=== PATIENT | male | born 1975 | race Hispanic/Latino ===

== ENCOUNTER 2020-01-19 12:31 | Observation (INO) | payer BC ==
[~2020-01-19] VITALS: Ht 182.9 cm; Wt 149.7 kg
[2020-01-19] MEDS ORDERED: LABETALOL HCL 5 MG/ML 20ML VIAL IV STA (12:58)
[2020-01-19] MEDS ORDERED: ASPIRIN 81 MG CHEW TAB PO ONE (13:00)
--- NOTE | 2020-01-19 13:25 | Diagnostic Imaging Report ---
X-ray chest frontal view History: Chest pain Comparison: None Findings: Lines and tubes: Not applicable Central airways: Unremarkable Cardiac silhouette: Unremarkable Mediastinal silhouettes: Unremarkable Pleura: No pleural effusion, pneumothorax or thickening Diaphragms: Unremarkable Lungs: No focal lung disease Skeletal structures: Unremarkable Extrathoracic soft tissues: Unremarkable Impression: No acute cardiopulmonary disease on this exam. Signed by: Eric Morrison MD on 01/19/2020 1:21 PM
[2020-01-19 13:30] LABS: BASOPHILS % 0.3 % (0.0-1.0); EOSINOPHILS # (AUTO) 0.2 (0.0-0.4); EOSINOPHILS % 2.1 % (0.0-6.0); HEMOGLOBIN 16.5 g/dL (14.0-18.0); LYMPHOCYTES # (AUTO) 1.7 (1.0-3.2); LYMPHOCYTES % 24.3 % (18.0-39.1); MEAN CORPUSCULAR VOLUME 90.9 fL (81-99); MONOCYTES # (AUTO) 0.8 (0.2-0.8); MONOCYTES % 10.5 % (4.4-11.3); NEUTROPHILS # (AUTO) 4.5 (2.1-6.9); NEUTROPHILS % 62.5 % (38.7-80.0); PLATELET COUNT 206 x10e3/uL (140-360); RED CELL DISTRIBUTION WIDTH 15.1 % (11.7-14.4)
[2020-01-19 13:35] LABS: INR 0.96; PROTHROMBIN TIME 13.3 seconds (11.9-14.5)
[2020-01-19 13:36] LABS: PARTIAL THROMBOPLASTIN TIME 32.6 seconds (23.8-35.5)
[2020-01-19 13:46] LABS: ALANINE AMINOTRANSFERASE 105 IU/L (0-55); ALBUMIN 4.1 g/dL (3.5-5.0); ALBUMIN/GLOBULIN RATIO 1.1 (0.8-2.0); ALKALINE PHOSPHATASE 100 IU/L (40-150); ANION GAP 12.8 mmol/L (8-16); BLOOD UREA NITROGEN 11 mg/dL (7-26); BUN/CREATININE RATIO 13 (6-25); CALCIUM 8.7 mg/dL (8.4-10.2); CARBON DIOXIDE 25 mmol/L (22-29); CHLORIDE 102 mmol/L (98-107); CREATINE KINASE 122 IU/L (30-200); CREATININE, SERUM 0.84 mg/dL (0.72-1.25); EST GLOMERULAR FILTRATION RATE > 60 ML/MIN (60-); GLUCOSE 99 mg/dL (74-118); LIPASE 23 U/L (8-78); MAGNESIUM 2.1 MG/DL (1.3-2.1); POTASSIUM 3.8 mmol/L (3.5-5.1); SODIUM 136 mmol/L (136-145)
--- NOTE | 2020-01-19 14:43 | Emergency Department Note ---
History of Present Illnes History of Present Illness Chief Complaint: Chest Pain History of Present Illness This is a 44 year old male Patient in from home with complaints of left upper chest pain that comes on after he eats which started about 1 week ago. Patient has a history of HTN and saw his doctor and had his blood pressure medication increased about a week ago. Patient went to see Dr. Shane again today because of the chest pain and his blood pressure was high so he was given 2 clonidine tablets in the office and sent here. Patient's blood pressure in triage is 193/123. Patient states the last time he had the pain was yesterday around 1400 when he last ate something. Denies pain now.. Historian: Patient Arrival Mode: Car Food Preservation Scientist Required: No Onset (how long ago): week(s) (1) Location: chest Quality: pressure Radiation: Reports non-radiation Severity: moderate Onset quality: gradual Timing of current episode: intermittent Progression: waxing and waning Chronicity: new Context: Denies recent illness Relieving factors: none Exacerbating factors: none Associated symptoms: Reports denies other symptoms Past Medical/Family History Physician Review I have reviewed the patient's past medical and family history. Any updates have been documented here. Past Medical History Recent Fever: No Clinical Suspicion of Infectio: No New/Unexplained Change in Ment: No Past Medical History: Hypertension Past Surgical History: None Social History Smoking Cessation: Never Smoker Counseling Performed: No Alcohol Use: Social Any Illegal Drug Use: No TB Exposure/Symptoms: No Physically hurt or threatened: No Family History Family history of heart diseas: No Other Any Pre-Existing Lines (PICC,: No Review of Systems Review of Systems Constitutional: Reports no symptoms EENTM: Reports no symptoms Cardiovascular: Reports as per HPI, Reports chest pain Respiratory: Reports dyspnea; Denies cough Gastrointestinal: Reports no symptoms Genitourinary: Reports no symptoms Musculoskeletal: Reports no symptoms Integumentary: Reports no symptoms Neurological: Reports no symptoms Psychological: Reports no symptoms Endocrine: Reports no symptoms Hematological/Lymphatic: Reports no symptoms Physical Exam Related Data Allergies: Coded Allergies: No Known Allergies (Unverified , 01/19/20) Triage Vital Signs Vital Signs Date Time Temp Pulse Resp B/P (MAP) Pulse Ox O2 Delivery O2 Flow Rate FiO2 01/19/20 12:32 97.7 82 16 193/123 100 Room Air Vital signs reviewed: Yes Physical Exam CONSTITUTIONAL Constitutional: Present well-developed, Present well-nourished HENT HENT: Present normocephalic, Present atraumatic, Present oropharynx clear/moist, Present nose normal HENT L/R: Present left ext ear normal, Present right ext ear normal EYES Eyes: Reports PERRL, Reports conjunctivae normal NECK Neck: Present ROM normal PULMONARY Pulmonary: Present effort normal, Present breath sounds normal CARDIOVASCULAR Cardiovascular: Present regular rhythm, Present heart sounds normal, Present capillary refill normal, Present normal rate GASTROINTESTINAL Abdominal: Present soft, Present nontender, Present bowel sounds normal GENITOURINARY Genitourinary: Present exam deferred SKIN Skin: Present warm, Present dry MUSCULOSKELETAL Musculoskeletal: Present ROM normal NEUROLOGICAL Neurological: Present alert, Present oriented x 3, Present no gross motor or sensory deficits PSYCHOLOGICAL Psychological: Present mood/affect normal, Present judgement normal Results Laboratory Result Diagram: 01/19/20 1236 01/19/20 1236 Laboratory Laboratory Tests Test 01/19/20 12:36 White Blood Count 7.16 x10e3/uL (4.8-10.8) Red Blood Count 5.50 x10e6/uL (4.3-5.7) Hemoglobin 16.5 g/dL (14.0-18.0) Hematocrit 50.0 % (38.2-49.6) Mean Corpuscular Volume 90.9 fL (81-99) Mean Corpuscular Hemoglobin 30.0 pg (28-32) Mean Corpuscular Hemoglobin Concent 33.0 g/dL (31-35) Red Cell Distribution Width 15.1 % (11.7-14.4) Platelet Count 206 x10e3/uL (140-360) Neutrophils (%) (Auto) 62.5 % (38.7-80.0) Lymphocytes (%) (Auto) 24.3 % (18.0-39.1) Monocytes (%) (Auto) 10.5 % (4.4-11.3) Eosinophils (%) (Auto) 2.1 % (0.0-6.0) Basophils (%) (Auto) 0.3 % (0.0-1.0) Neutrophils # (Auto) 4.5 (2.1-6.9) Lymphocytes # (Auto) 1.7 (1.0-3.2) Monocytes # (Auto) 0.8 (0.2-0.8) Eosinophils # (Auto) 0.2 (0.0-0.4) Basophils # (Auto) 0.0 (0.0-0.1) Absolute Immature Granulocyte (auto 0.02 x10e3/uL (0-0.1) Prothrombin Time 13.3 seconds (11.9-14.5) Prothromb Time International Ratio 0.96 Activated Partial Thromboplast Time 32.6 seconds (23.8-35.5) Sodium Level 136 mmol/L (136-145) Potassium Level 3.8 mmol/L (3.5-5.1) Chloride Level 102 mmol/L (98-107) Carbon Dioxide Level 25 mmol/L (22-29) Anion Gap 12.8 mmol/L (8-16) Blood Urea Nitrogen 11 mg/dL (7-26) Creatinine 0.84 mg/dL (0.72-1.25) Estimat Glomerular Filtration Rate > 60 ML/MIN (60-) BUN/Creatinine Ratio 13 (6-25) Glucose Level 99 mg/dL (74-118) Calcium Level 8.7 mg/dL (8.4-10.2) Magnesium Level 2.1 MG/DL (1.3-2.1) Total Bilirubin 0.9 mg/dL (0.2-1.2) Aspartate Amino Transf (AST/SGOT) 44 IU/L (5-34) Alanine Aminotransferase (ALT/SGPT) 105 IU/L (0-55) Alkaline Phosphatase 100 IU/L (40-150) Creatine Kinase 122 IU/L (30-200) Creatine Kinase MB 2.50 ng/mL (0-5.0) Troponin I < 0.001 ng/mL (0-0.300) B-Type Natriuretic Peptide < 10.0 pg/mL (0-100) Total Protein 8.0 g/dL (6.5-8.1) Albumin 4.1 g/dL (3.5-5.0) Globulin 3.9 g/dL (2.3-3.5) Albumin/Globulin Ratio 1.1 (0.8-2.0) Lipase 23 U/L (8-78) Lab results reviewed: Yes Imaging Imaging results reviewed: Yes Impressions X-ray chest frontal view History: Chest pain Comparison: None Findings: Lines and tubes: Not applicable Central airways: Unremarkable Cardiac silhouette: Unremarkable Mediastinal silhouettes: Unremarkable Pleura: No pleural effusion, pneumothorax or thickening Diaphragms: Unremarkable Lungs: No focal lung disease Skeletal structures: Unremarkable Extrathoracic soft tissues: Unremarkable Impression: No acute cardiopulmonary disease on this exam. Signed by: Eric Morrison MD on 01/19/2020 1:21 PM Procedures 12 Lead ECG Interpretation ECG Interpretation : ECG: ECG 1 Food Preservation Scientist: Interpreted by ED physician Date: Jan 19, 2020 Time: 12:38 Rhythm: sinus rhythm Rate: normal BPM: 83 QRS axis: normal ST segments normal: Yes T waves normal: Yes Clinical Impression: normal ECG (except poor RWP) Assessment & Plan Medical Decision Making MDM cp - cbc, chem, ecg, cardiacs, cxr - r/o stemi/nstemi, renal insuff, chf, control BP Reassessment Reassessment admit to Dr Shane Assessment & Plan Final Impression: (1) Chest pain (2) Hypertensive urgency Depart Disposition: ADMITTED Last Vital Signs Date Time Temp Pulse Resp B/P (MAP) Pulse Ox O2 Delivery O2 Flow Rate FiO2 01/19/20 14:35 85 148/101 01/19/20 14:34 18 98 Room Air 01/19/20 12:32 97.7 Medications in the ED Aspirin 81 mg PRN ONCE PO Last administered on 01/19/20at 14:36; Admin Dose 81 MG; Start 01/19/20 at 13:00; Stop 01/19/20 at 13:13; Status DC Labetalol HCl 20 mg NOW STAT IV ; Start 01/19/20 at 12:58; Stop 01/19/20 at 13:13; Status DC DARCI SIDDIQUI MD Jan 19, 2020 14:43
[2020-01-19] MEDS ORDERED: ONDANSETRON HCL INJ 2MG/ML 2ML 2 MG/ML VIAL IV PRN (14:45)
[2020-01-19] MEDS ORDERED: MORPHINE SULFATE 2 MG/ML SYR 1ML IV PRN (14:45)
[2020-01-19] MEDS ORDERED: NITROGLYCERIN 0.4 MG SUBL SL PRN (14:45)
[2020-01-19] MEDS: METOPROLOL TARTRATE 25 MG TAB PO SCH ×2 (15:08→21:00)
[2020-01-19] MEDS: FAMOTIDINE 20 MG/2 ML VIAL IV SCH ×2 (15:08→21:00)
[2020-01-19 16:08] VITALS: BP 176/123
--- NOTE | 2020-01-19 16:08 | NUR ---
Received patient from ER. AOx4. denies pain at this time. Respiration even and unlabored without SOB. Denies chest pain. Orientated to room and how to use the bed and call light. Advised to use the call light if assistance is needed. Call light in reach.
[2020-01-19 16:21] VITALS: BP 176/123
[2020-01-19] MEDS ORDERED: LOSARTAN POTASS25 MG PO (16:31)
[2020-01-19] MEDS ORDERED: HYDRALAZINE HCL 20 MG/ML VIAL IV PRN (16:45)
[2020-01-19] MEDS: LOSARTAN POTASSIUM 100 MG TAB PO SCH (17:00)
[2020-01-19] MEDS: AMLODIPINE BESYLATE 5 MG TAB PO SCH (17:07)
--- NOTE | 2020-01-19 19:15 | History and Physical ---
HISTORY OF PRESENT ILLNESS: The patient is a 44-year-old gentleman, who been sent from the clinic to the hospital for accelerated hypertension and hypertensive emergency. The patient did have some chest pain and also left-sided pain. The patient also had intractable nausea and vomiting and headache and currently is on multiple home medication for blood pressure. PAST MEDICAL HISTORY: Hypertension. SOCIAL HISTORY: No EtOH. No IV drug abuse. No history of smoking either. FAMILY HISTORY: Noncontributory. MEDICATIONS: He takes is losartan 50 mg once at nighttime and meclizine for vertigo. REVIEW OF SYSTEMS: Positive for chest pain. Positive for nausea. No vomiting. No diarrhea. No constipation. No rectal bleeding. No musculoskeletal problems. No integumentary problems. No neurological problems except mild headaches. Endocrine: No symptoms. Hematologic: No problems at all. PHYSICAL EXAMINATION: VITAL SIGNS: On arrival to the ED, the patient's blood pressure is on 100% on room air. HEENT: Normocephalic and atraumatic. The patient does have some nystagmus. CVS: S1 and S2 normal. Regular rate and rhythm. ABDOMEN: Soft, nontender, and nondistended. EXTREMITIES: No clubbing, no cyanosis, no edema. LABORATORY VALUES: Initial white count of 7.16, hematocrit of 50, hemoglobin of 16, BUN of 11 and creatinine 0.84. Potassium is normal. Lipase is normal imaging studies chest x-ray, normal. EKG, normal sinus rhythm. No axis deviation. Laboratory values other than that coronavirus is pending and coags have been normal. ASSESSMENT AND PLAN: Mr. Carlos Eduardo Sweeney with axillary hypertension. The patient has been started on amlodipine 5 mg daily, metoprolol 25 mg q.12 hours, hydralazine as needed, losartan 50 mg twice a day, nitroglycerin as needed, and also aspirin 81 mg. Cardiology has been consulted. We want an echocardiogram. Also a CT of the brain to rule out any process in the brain for his intractable nausea and dizziness. Further recommendation per clinical course. We will continue to monitor the patient. MD HANNAH Duff/MODL /[id number]
[2020-01-19 19:56] LABS: CREATINE KINASE 105 IU/L (30-200)
[2020-01-19 20:00] VITALS: BP 150/93
[2020-01-19 21:00] VITALS: BP 150/93
[2020-01-20] VITALS (8 sets, daily range): BP systolic 148–159; BP diastolic 89–102
--- NOTE | 2020-01-20 00:48 | Diagnostic Imaging Report ---
Examination: CT BRAIN WO History:^DIZZINESS ^20200119 ^2129 Comparison studies:None Technique: Axial images were obtained from the skull base to the vertex. Coronal and sagittal images reconstructed from the axial data. Dose modulation, iterative reconstruction, and/or weight based adjustment of the mA/kV was utilized to reduce the radiation dose to as low as reasonably achievable. Intravenous contrast: None Findings: Scalp: No abnormalities. Bones: No fractures, blastic or lytic lesions. Brain sulci: Appropriate for age. Ventricles: Normal in size and configuration. No hydrocephalus. Extra-axial space: No abnormalities. Parenchyma: No abnormal densities. No masses, hemorrhage, or acute or chronic cortical based vascular insults.. Sellar/suprasellar region: No abnormalities. Craniocervical junction: Patent foramen magnum. No Chiari one malformation. Incidental findings: None. Impression: No intracranial abnormalities. Verbal report provided by Dr. Lilia Matute to Jaxson CHEN on 01/19/2020 at 2216 hours. Signed by: Dr. Lilia Matute M.D. on 01/20/2020 12:44 AM
[2020-01-20 00:58] LABS: CREATINE KINASE 111 IU/L (30-200)
--- NOTE | 2020-01-20 06:29 | NUR ---
PAGED DR. MEDINA REGARDING CONSULT.
[2020-01-20 06:37] LABS: BASOPHILS % 0.4 % (0.0-1.0); EOSINOPHILS # (AUTO) 0.2 (0.0-0.4); EOSINOPHILS % 2.9 % (0.0-6.0); HEMATOCRIT 46.8 % (38.2-49.6); HEMOGLOBIN 15.2 g/dL (14.0-18.0); MEAN CORPUSCULAR HEMOGLOBIN 29.6 pg (28-32); MEAN CORPUSCULAR HGB CONC 32.5 g/dL (31-35); MEAN CORPUSCULAR VOLUME 91.2 fL (81-99); MONOCYTES # (AUTO) 0.8 (0.2-0.8); MONOCYTES % 11.6 % (4.4-11.3); NEUTROPHILS % 56.8 % (38.7-80.0); PLATELET COUNT 189 x10e3/uL (140-360); RED BLOOD COUNT 5.13 x10e6/uL (4.3-5.7)
[2020-01-20 06:54] LABS: ALANINE AMINOTRANSFERASE 84 IU/L (0-55); ALBUMIN 3.6 g/dL (3.5-5.0); ALKALINE PHOSPHATASE 92 IU/L (40-150); ANION GAP 10.8 mmol/L (8-16); BLOOD UREA NITROGEN 10 mg/dL (7-26); BUN/CREATININE RATIO 14 (6-25); CALCIUM 8.5 mg/dL (8.4-10.2); CARBON DIOXIDE 25 mmol/L (22-29); CHLORIDE 105 mmol/L (98-107); CHOL/HDL RATIO 2.8 (3.9-4.7); CHOLESTEROL 121 MD/DL (0-199); CREATININE, SERUM 0.74 mg/dL (0.72-1.25); EST GLOMERULAR FILTRATION RATE > 60 ML/MIN (60-); GLUCOSE 90 mg/dL (74-118); HDL CHOLESTEROL 43 MG/DL (40-60); LDL CHOLESTEROL 62 MG/DL (60-130); POTASSIUM 3.8 mmol/L (3.5-5.1); SODIUM 137 mmol/L (136-145); TRIGLYCERIDES 80 MG/DL (0-149)
[2020-01-20 07:13] LABS: CREATINE KINASE 103 IU/L (30-200)
[2020-01-20] MEDS: FAMOTIDINE 20 MG/2 ML VIAL IV SCH ×2 (09:03→21:56)
[2020-01-20] MEDS: ASPIRIN 81 MG ENTERIC COATED PO SCH (09:04)
[2020-01-20] MEDS: LOSARTAN POTASSIUM 100 MG TAB PO SCH ×2 (09:04→17:47)
[2020-01-20] MEDS: AMLODIPINE BESYLATE 5 MG TAB PO SCH (09:04)
[2020-01-20] MEDS: METOPROLOL TARTRATE 25 MG TAB PO SCH ×2 (09:04→21:57)
--- OUTSIDE RECORDS SUMMARY | 2020-01-20 10:05 | XMS REPORT | Continuity of Care Document ---
Author Author [facility] t Organization [facility] Address [address] [place] [address] Dr. Holt [address] [place] [phone] Phone Unavailable Care Team Providers Care Loom Changer Name Role Phone Haydee JACKSON Attphys Unavailable Haydee JACKSON Admphyhaydee Unavailable Problems This patient has no known problems. Allergies, Adverse Reactions, Alerts This patient has no known allergies or adverse reactions. Medications This patient has no known medications. Procedures This patient has no known procedures. Results Test Description Test Time Test Comments Results Result Comments Source CT BRAIN WO 2020-01-20 00:42:00 [facility] : 1975 Sex: M [facility] [address] [place] [address] Patient Name: LOULOU QUIROGA MR #: [id number] : 1975 Age/Sex: 44/M Req #: [id number] Adm Physician: TAWANNA JACKSON MD Ordered by: SELWYN TORRES MD Report #: [id number] Location: MED/SURG3 Room/Bed: [facility] Procedure: [id number] CT/CT BRAIN WO Exam Date: 01/19/20 Exam Time: 2129 REPORT STATUS: Signed Examination: CT BRAIN WO History: DIZZINESS 20200119 Comparison studies:None Technique: Axial images were obtained from the skull base to the vertex. Coronal and sagittal images reconstructed from the axial data. Dose modulation, iterative reconstruction, and/or weight based adjustment of the mA/kV was utilized to reduce the radiation dose to as low as reasonably achievable. Intravenous contrast: None Findings: Scalp: No abnormalities. Bones: No fractures, blastic or lytic lesions. Brain sulci: Appropriate for age. Ventricles: Normal in size and configuration. No hydrocephalus. Extra-axial space: No abnormalities. Parenchyma: No abnormal densities. No masses, hemorrhage, or acute or chronic cortical based vascular insults.. Sellar/suprasellar region: No abnormalities. Craniocervical junction: Patent foramen magnum. No Chiari one malformation. Incidental findings: None. Impression: No intracranial abnormalities. Verbal report provided by Dr. Lilia Maldonado to Jaxson CHEN on 01/19/2020 at 2216 hours. Signed by: Dr. Lilia Maldonado M.D. on 01/20/2020 12:44 AM Dictated By: LILIA GARCIA MD Transcribed By: TERENCE on 01/20/2043 COPY TO: SELWYN TORRES MD CHEST SINGLE (PORTABLE) 2020-01-19 13:21:00 [facility] : 1975 Sex: M [place] [address] Patient Name: LOULOU QUIROGA MR #: [id number] : 1975 Age/Sex: 44/M Req #: [id number] Adm Physician: Ordered by: DARCI SIDDIQUI MD Report #: [id number] Location: ER Room/Bed: Procedure: [id number] DX/CHEST SINGLE (PORTABLE) Exam Date: 01/19/20 Exam Time: 1305 REPORT STATUS: Signed X-ray chest frontal view History: Chest pain Comparison: None Findings: Lines and tubes: Not applicable Central airways: Unremarkable Cardiac silhouette: Unremarkable Mediastinal silhouettes: Unremarkable Pleura: No pleural effusion, pneumothorax or thickening Diaphragms: Unremarkable Lungs: No focal lung disease Skeletal structures: Unremarkable Extrathoracic soft tissues: Unremarkable Impression: No acute cardiopulmonary disease on this exam. Signed by: Steff Ibarra MD on 01/19/2020 1:21 PM Dictated By: STEFF IBARRA MD 132 Transcribed By: TERENCE on 01/19/201320 COPY TO: DARCI SIDDIQUI MD
--- OUTSIDE RECORDS SUMMARY | 2020-01-20 10:05 | XMS REPORT | Continuity of Care Document ---
Author Author [facility] t Organization [facility] Address [address] [place] [address] Dr. Holt [address] [place] [phone] Phone Unavailable Care Team Providers Care Senior Investment Manager Name Role Phone Haydee JACKSON Attphys Unavailable Haydee JACKSON Admphyhaydee Unavailable Problems This patient has no known problems. Allergies, Adverse Reactions, Alerts This patient has no known allergies or adverse reactions. Medications This patient has no known medications. Procedures This patient has no known procedures. Results Test Description Test Time Test Comments Results Result Comments Source CT BRAIN WO 2020-01-20 00:42:00 [facility] : 1975 Sex: M [facility] [address] [place] [address] Patient Name: LOULOU QUIROGA MR #: [id number] : 1975 Age/Sex: 44/M Req #: [id number] Adm Physician: TAWANNA JACKSON MD Ordered by: SELWYN TORRES MD Report #: [id number] Location: MED/SURG3 Room/Bed: [facility] Procedure: [id number] CT/CT BRAIN WO Exam Date: 01/19/20 Exam [...] TORRES MD CHEST SINGLE (PORTABLE) 2020-01-19 13:21:00 [facility] : 1975 Sex: M [place] [address] Patient Name: LOULOU QUIROGA MR #: [id number] : 1975 Age/Sex: 44/M Req #: [id number] Adm Physician: Ordered by: DARCI SIDDIQUI MD Report #: [id number] Location: ER Room/Bed: Procedure: [id number] DX/CHEST SINGLE (PORTABLE) Exam Date: 01/19/20 Exam [...]
[2020-01-20] MEDS: SPIRONOLACTONE 25 MG TAB PO SCH (12:36)
[2020-01-21] VITALS (8 sets, daily range): BP systolic 134–149; BP diastolic 82–97
--- NOTE | 2020-01-21 05:59 | Consultation ---
DATE OF CONSULTATION: CARDIOLOGY CONSULTATION.: REASON FOR CONSULTATION: Hypertensive urgency with chest pain. HISTORY OF PRESENT ILLNESS: Mr. Sweeney is a 44-year-old male with a pertinent past medical history of hypertension and also vertigo, who reports that he has been under the care of Dr. Shane for the following complaints for long time, however, more recently has been going to see Dr. Shane due to ongoing issues of hypertension, worsening at home, and also for the last two weeks has been suffering with left-sided chest pains that appear to be worsening the last few days prior to his visit in the ER. He went to see Dr. Shane yesterday. Blood pressure was noted systolic to be in 190s, diastolic in 120s and for that reason and also his concurrent complaints of left-sided chest pain, he was asked to come to the ER. Currently, this patient is not experiencing this chest pain. He reports he feels much better. Blood pressure is noted to have improved. He denies any shortness of breath, palpitations, dizziness, syncope, nausea, vomiting, abdominal discomfort, dysuria, edema, orthopnea or PND noted. SOCIAL HISTORY: He denies smoking or illicit drug use. He does report occasional social alcohol intake and reports he has not been taking alcohol for about a month. PAST SURGICAL HISTORY: No significant surgeries reported. FAMILY HISTORY: Very significant for early heart disease with his father passing away with an MT at the age of 43. REVIEW OF SYSTEMS: Negative except as mentioned above. PHYSICAL EXAMINATION: VITAL SIGNS: Temperature 98.0, pulse 67, respiratory rate 16, blood pressure 158/89, oxygen saturation 97% on room air. GENERAL: Alert and oriented x3, resting comfortably in bed, in no acute distress. NECK: Supple. No JVD noted. No carotid bruit. LUNGS: Clear to auscultation throughout. No wheezing. No rhonchi or crackles. CARDIOVASCULAR: Regular rate and rhythm. Normal S1, S2. No murmurs, no gallops. ABDOMEN: Soft, nontender. Normoactive bowel sounds. LOWER EXTREMITIES: 2+ pedal pulses. No edema. No discoloration noted. CARDIOVASCULAR MEDICATIONS: 1. Amlodipine 5 mg p.o. daily. 2. Losartan 50 mg p.o. b.i.d. 3. Metoprolol 25 p.o. q.12 hours. 4. Aspirin 81 p.o. daily. LABORATORY DATA: WBC 6.92, hemoglobin 15.2, hematocrit 46.8, platelets 189. Sodium 137, potassium 3.8, BUN 10, and creatinine 0.76, glucose 90, AST 37, ALT 84, alkaline phosphatases 92, creatine kinase 103, CK-MB 2.0, troponin less than 0.001. Total cholesterol 121, LDL 62, HDL 42, TSH 2.057, triglycerides 80. IMAGING: From yesterday, chest x-ray with no acute cardiopulmonary disease noted. Brain CT with no cranial abnormalities noted. TELEMETRY: I personally reviewed telemetry that reflects normal sinus rhythm. IMPRESSION: 1. Hypertensive urgency. 2. Atypical chest pain. 3. Chronic vertigo. 4. Family history of early heart disease. RECOMMENDATIONS: Echocardiogram has been obtained this morning. Recommendation will follow after review. Cardiac enzymes have ruled out acute coronary syndrome. Given a strong family history of early heart disease, the patient will need ischemic workup. We will discuss timing. The patient will benefit from a stress test. Continue the above-listed cardiac medication and medical management of the above. Medication will be further adjusted for proper blood pressure control. We thank you Dr. Carter for this consultation and allowing us to participate in this patient's care. Dictated by Lisandra Hinson NP Ramón Razo MD JWV/ALEXL /[id number]
[2020-01-21] MEDS: SPIRONOLACTONE 25 MG TAB PO SCH (08:50)
[2020-01-21] MEDS: ASPIRIN 81 MG ENTERIC COATED PO SCH (08:50)
[2020-01-21] MEDS: LOSARTAN POTASSIUM 100 MG TAB PO SCH ×2 (08:51→17:43)
[2020-01-21] MEDS: AMLODIPINE BESYLATE 5 MG TAB PO SCH (08:52)
[2020-01-21] MEDS: METOPROLOL TARTRATE 25 MG TAB PO SCH ×2 (08:52→20:32)
[2020-01-21] MEDS: FAMOTIDINE 20 MG/2 ML VIAL IV SCH ×2 (08:53→20:32)
--- NOTE | 2020-01-21 10:10 | Progress Note ---
DATE: Cardiology Progress Note SUBJECTIVE: The patient is without any new complaints this morning. He reports that he slept well. Denies any chest pain, shortness of breath, or palpitation. OBJECTIVE: VITAL SIGNS: Temperature 97.8, pulse 68, respiratory rate 18, blood pressure 149/88, and oxygen saturation 100% on room air. GENERAL: Alert and oriented x3, resting comfortably in bed. Does not appear to be in any acute distress. NECK: Supple. No JVD noted. CARDIOVASCULAR: Regular rate and rhythm. No murmurs, no gallops. Normal S1, S2. LUNGS: Clear to auscultation throughout. No wheezing. No rhonchi or crackles. ABDOMEN: Soft, nontender. Normoactive bowel sounds. EXTREMITIES: Lower extremities; 2+ pedal pulses. No edema. No discoloration noted. CARDIOVASCULAR MEDICATIONS: Amlodipine 5 mg p.o. daily, metoprolol tartrate 25 mg p.o. q.12 hours, aldactone 25 mg p.o. daily, losartan 50 mg p.o. b.i.d., and aspirin 81 mg p.o. daily. LABORATORY DATA: No new labs today. TELEMETRY: I have personally reviewed telemetry and it reflects normal sinus rhythm. IMPRESSION: 1. Hypertensive urgency with improved blood pressure now. 2. Atypical chest pain. 3. Chronic vertigo. 4. Family history of early heart disease. RECOMMENDATIONS: Echocardiogram has been completed, awaiting review, recommendations will follow. Plans for nuclear stress test tomorrow morning. Continue the above-listed cardiac medications. Continue to monitor blood pressure closely. Thank you for allowing us to participate in this patient's care. Dictated by Lisandra Hinson NP MD GENEVA LamV/MATIAS /[id number]
--- NOTE | 2020-01-21 18:55 | NUR ---
Bedside rounds completed with morning nurse. Pt alert and oriented, sitting in bed, denies pain at this time. at bedside. Call light within reach. Bed low and locked.
[2020-01-22] VITALS (7 sets, daily range): BP systolic 123–147; BP diastolic 77–91
[2020-01-22] MEDS: METOPROLOL TARTRATE 25 MG TAB PO SCH (09:00)
[2020-01-22] MEDS: ASPIRIN 81 MG ENTERIC COATED PO SCH (09:00)
[2020-01-22] MEDS: LOSARTAN POTASSIUM 100 MG TAB PO SCH ×2 (09:00→18:14)
[2020-01-22] MEDS: SPIRONOLACTONE 25 MG TAB PO SCH ×2 (09:00→14:27)
[2020-01-22] MEDS: AMLODIPINE BESYLATE 5 MG TAB PO SCH ×2 (09:00→14:27)
[2020-01-22] MEDS: FAMOTIDINE 20 MG/2 ML VIAL IV SCH (09:00)
--- NOTE | 2020-01-22 11:00 | NUR ---
Patient is transported for cardiac cath at this time.
--- NOTE | 2020-01-22 13:04 | NUR ---
Patient is back from cardiac stress test. Respiration even and unlabored without SOB. Call light in reach
--- NOTE | 2020-01-22 19:26 | NUR ---
Received change of shift report from AM nurse. Walking rounds completed.
--- NOTE | 2020-01-22 19:53 | NUR ---
Dr Shane on the floor to see patient.
[2020-01-22] MEDS ORDERED: AMLODIPINE BESYL5 MG PO ×2 (20:39→20:41)
[2020-01-22] MEDS ORDERED: METOPROLOL SUCC25 MG PO (20:45)
[2020-01-22] MEDS ORDERED: METOPROLOL TART25 MG PO (20:46)
[2020-01-22] MEDS ORDERED: ALDACTONE25 MG PO (20:47)
--- NOTE | 2020-01-22 22:17 | Progress Note ---
DATE: 01/22/2020 SUBJECTIVE: A 44-year-old gentleman, who came in with hypertensive urgency. The patient has stress test done today, report is not completely documented; however, the patient's verbal is negative. Continues to be on losartan, Aldactone, amlodipine, and metoprolol. We will continue monitoring the patient. Discharge will be done today. OBJECTIVE: VITAL SIGNS: Temperature is 98.1, pulse of 91, respirations of 121/84, pulse oximetry of 99%. HEENT: Normocephalic, atraumatic. Pupils are reactive. CVS: S1 and S2 normal. Regular rate and rhythm. ABDOMEN: Soft, nontender, nondistended. EXTREMITIES: No clubbing, no cyanosis, no edema. PLAN: Mr. Carlos Eduardo Sweeney with accelerated hypertension. We will continue the same medications. We will see the patient in the clinic in about a week's time be negative. Further recommendation per clinical course. MD HANNAH Duff/MODL /[id number]
== END 2020-01-22 21:58 | disposition home or self-care (01) ==
LOC: ER 12:40 → ERHOLD 14:43 → MED/SURG3 16:10
PROVIDERS: ADMIT Family Medicine; ATTEND Family Medicine
DX: I16.0 Hypertensive urgency (principal); R42 Dizziness and giddiness; Z82.49 Family history of ischemic heart disease and other diseases of the circulatory system
CPT/HCPCS: 36415 ×2; 70450; 71045; 78452; 80053 ×2; 80061; 82550 ×2; 82553 ×2; 83036; 83690; 83735; 83880; 84443; 84484 ×2; 85025 ×2; 85610; 85730; 93005; 93017; 93306; 99284; A9502; G0378 ×4; J3490; U0002

== ENCOUNTER 2024-05-04 18:11 | Emergency (ER) | payer BC ==
[~2024-05-04] VITALS: Ht 185.4 cm; Wt 147.4 kg
[~2024-05-04 18:11] MED LIST: ALDACTONE25 MG PO; AMLODIPINE BESYL5 MG PO; HYDROCHLOROTHIA25 MG PO; LOSARTAN POTASS25 MG PO; LOSARTAN POTASS50 MG PO; METOPROLOL SUCC25 MG PO; METOPROLOL TART25 MG PO
[2024-05-04 18:25] VITALS: PULSE 94; RESP 20; TEMP 98.8
[2024-05-04 19:30] VITALS: BP 129/84; PULSE 84; RESP 18; TEMP 98.3; O2SAT 99
== END 2024-05-04 19:07 | disposition home or self-care (01) ==
LOC: ER 18:56
DX: S81.811D Laceration without foreign body, right lower leg, subsequent encounter (principal); W26.8XXD Contact with other sharp object(s), not elsewhere classified, subsequent encounter; Y92.832 Beach as the place of occurrence of the external cause; I10 Essential (primary) hypertension
CPT/HCPCS: 99283

== ENCOUNTER 2024-05-16 15:01 | Emergency (ER) | payer BC ==
[~2024-05-16] VITALS: Ht 185.4 cm; Wt 105.2 kg
[2024-05-16 15:14] VITALS: PULSE 100; RESP 20; TEMP 98.5
[2024-05-16 15:30] LABS: BASOPHILS # (AUTO) 0.1 (0.0-0.1); BASOPHILS % 0.9 % (0.0-1.0); EOSINOPHILS # (AUTO) 0.2 (0.0-0.4); EOSINOPHILS % 2.6 % (0.0-6.0); HEMATOCRIT 41.4 % (38.2-49.6); HEMOGLOBIN 13.8 g/dL (14.0-18.0); LYMPHOCYTES # (AUTO) 1.6 (1.0-3.2); LYMPHOCYTES % 27.9 % (18.0-39.1); MEAN CORPUSCULAR HEMOGLOBIN 30.3 pg (28-32); MEAN CORPUSCULAR HGB CONC 33.3 g/dL (31-35); MEAN CORPUSCULAR VOLUME 90.8 fL (81-99); MONOCYTES # (AUTO) 0.6 (0.2-0.8); MONOCYTES % 9.4 % (4.4-11.3); NEUTROPHILS # (AUTO) 3.5 (2.1-6.9); PLATELET COUNT 243 x10e3/uL (140-360); RED BLOOD COUNT 4.56 x10e6/uL (4.3-5.7); RED CELL DISTRIBUTION WIDTH 14.1 % (11.7-14.4); WHITE BLOOD COUNT 5.87 x10e3/uL (4.8-10.8)
[2024-05-16 15:46] LABS: ALBUMIN 4.1 g/dL (3.5-5.0); ALBUMIN/GLOBULIN RATIO 1.1 (0.8-2.0); ANION GAP 14.6 mmol/L (8-16); BILIRUBIN,TOTAL 0.6 mg/dL (0.2-1.2); CALCIUM 9.1 mg/dL (8.4-10.2); CREATININE, SERUM 1.05 mg/dL (0.72-1.25); POTASSIUM 3.6 mmol/L (3.5-5.1)
[2024-05-16] MEDS ORDERED: AMOX TR-K CLV1 EAC2 PO (16:03)
[2024-05-16] MEDS ORDERED: DOXYCYCLINE HY100 MG PO (16:03)
[2024-05-16 16:22] VITALS: BP 135/74; PULSE 84; RESP 16; TEMP 98.5; O2SAT 98
== END 2024-05-16 16:20 | disposition home or self-care (01) ==
LOC: ER 15:20
DX: S81.801D Unspecified open wound, right lower leg, subsequent encounter (principal); M79.89 Other specified soft tissue disorders; I10 Essential (primary) hypertension
CPT/HCPCS: 36415; 80053; 85025; 99283